=== PATIENT | female | born 2000 | race Caucasian/White ===

== ENCOUNTER 2025-04-08 10:26 | Outpatient (CLI) | payer BC, SELFPAY ==
--- OUTSIDE RECORDS SUMMARY | 2025-04-08 10:35 | XMS_ITS | Data Portability ---
Author Organization [place] - [facility] [place] & KEVIN Baldwin ADMIN Address [address] [place] [id number] Care Team Providers Care Mineral Surveying Technician Name Role Phone PHILLIP GUADALUPE Family Medicine PHILLIP GUADALUPE Primary Care Provider Assessment Encounter Date Assessment Date Assessment LastModified by Organization Details LastModified Time 06/09/2024 06/09/2024 23-year-old female with intermittent hard stools with straining and persistent lower abdominal pain. Imaging has showed constipation previously OTC laxatives and prescription osmotic laxatives have caused excessive diarrhea. Motegrity was not covered. She has failed multiple trials of medications. Colonoscopy showed no abnormal findings. She likely has anismus. -Start Colace 100 mg p.o. once daily for hard stools. -Will refer the patient for pelvic floor therapy, eval and treat -f/u 2 months Not available 06/09/2024 13:09:52 12/17/2024 12/17/2024 trial of low dose TCA at bed time restart bentyl for prn ppx use increase hydration check labs check echo short term f/u 43 minutes spent in the care of this patient today, the majority of which obtaining history and reviewing sypmtoms and explaining plan of care. [email or web address] Not available 12/17/2024 14:42:14 01/07/2025 01/07/2025 She will first try doubling dose of TCA and give me an update, if still no change at all we can plan for d/c discussed different supplements to consider such as gruns in place of her current probiotic continue hydration, add electrolytes discussed potential second opinion with GI, imaging family agreeable to CT pending cost discussed previously that there could be cooker tender component but does not seem cyclical or with associated sx at this time echo has reduced in intensity compared to last exam, per family request will hold on echo and continue to follow [email or web address] Not available 01/07/2025 11:41:12 02/02/2025 02/02/2025 we reviewed her history, the most recent labs, allergy findings both on her blood testing in her home testing. CT scan was reviewed in detail, as noted in the HPI call is pending to Dr. Canas in [facility] for review. We will plan for referral to secondary GI office for consultation. We discussed that her diagnosis of constipation was made off initial imaging in symptoms however now with daily bowel movements, she seems to have worsening symptoms and no improvement in how she feels. Numerous medications have been tried with no benefit. We did discuss possible histamine related symptoms and I have encouraged her to consider a 2 week course of Zyrtec with Pepcid as noted below and sent to the pharmacy. 38 minutes of care were spent on this case today. [email or web address] Not available 02/02/2025 13:01:56 Plan of Treatment Reminders Order Date Submit Date Provider Last Modified By Organization Details Last Modified Time Details Appointments None recorded. Lab magnesium, serum or plasma 2024 025 [facility]), [address] [place], [address], 5 14:37:25 TSH + free T4, serum 2024 025 [facility]), [address] [place], [address], 5 14:37:22 CMP, serum or plasma 2024 025 [facility] ([place]), [address] [place], [address], 5 14:37:24 CBC w/ auto diff 2024 025 [facility]), [address] [place], [address], 5 14:37:23 C reactive protein, QN, serum or plasma 2024 025 DR[facility] ([place]), [address] [place], [address], 5 14:37:26 erythrocyte sedimentati on rate by westergren method 2024 025 DRAGAN [facility] ([place]), [address] [place], [address], 5 14:37:25 iron + TIBC + ferritin, serum 2024 025 DRAGAN [facility] ([place]), [address] [place], [address], 5 14:37:21 Referral gastroenter ologist referral 2024 025 DRAGAN Mcneil MD, [address], [place], [address], 5 15:00:40 pelvic floor therapy referral 2023 024 [email or web address] Not available 13:10:02 Procedures None recorded. Surgeries None recorded. Imaging CT, abdomen + pelvis, w/ contrast - with po and iv contrast. Pt may be interested in diaz pay option due to high insurance cost 2024 025 [facility], [address], [place], [address], 5 09:16:40 US, echocardiog rea [address] (Centralized Scheduling), [address], [place], [address], 5 09:05:12 MRI, knee, w/o contrast [address] (Centralized Scheduling), [address] [place], [address], 5 08:54:08 Medication Orders cetirizine 10 mg capsule 2024 025 [facility]armacy #[id number], [address] [place], [address], 5 09:59:51 famotidine 20 mg tablet 2024 025 [facility]acy #[id number], [address] [place], [address], 5 09:59:51 amitriptyli ne 10 mg tablet [address]/Pharmacy #2332, [address] [place] [address], [address], 5 08:46:37 dicyclomine 20 mg tablet [address]/Pharmacy #2332, [address] [place], [address], 5 08:46:38 Colace [address] [facility] [address] [place] [address], [address], 5 10:00:17 Patient TargetsNo targets recorded. Patient InstructionsNo instructions recorded. Reason for Referral Pelvic Floor Therapy Referra l for Anismus Referring Physician: Isaac Quick, Gastroenterology, Encounter Date: 06/09/2024 Software Reliability Engineer Referral for Abdominal bloating Referring Physician: Phillip Gallo, Family Medicine, Encounter Date: 02/02/2025 Results Created Date Observation Date Name Description Value Unit Range Abnormal Flag Note LastModifiedBy Organization Detail LastModifiedTime 12/18/19 25 12/18/2024 FE+TI BC+FE R iron bind.cap.(TI BC) 355 ug/dL 250-45 0 normal Not Available [facility] ([facility]) [address] [place], [address], 12/18/2024 14:37:21 12/18/19 25 12/18/2024 FE+TI BC+FE R UIBC 319 ug/dL 131-42 5 normal Not Available [facility] ([facility]) [address] [place], [address], 12/18/2024 14:37:21 12/18/19 25 12/18/2024 FE+TI BC+FE R iron 36 ug/dL 27-159 normal Not Available [facility] ([facility]) [address] [place], [address], 12/18/2024 14:37:21 12/18/19 25 12/18/2024 FE+TI BC+FE R iron saturation 10 % 15-55 below low normal Not Available [facility] ([facility]) [address] [place], [address], 12/18/2024 14:37:21 12/18/19 25 12/18/2024 FE+TI BC+FE R ferritin 65 NG/mL 15-150 normal Not Available [facility] ([facility]) [address] [place], [address], 12/18/2024 14:37:21 12/18/1912/18/2024 TSH+F REE T4 TSH 1.600 uIU/m L 0.450- 4.500 normal Not Available [facility] ([facility]) [address] [place], [address], 12/18/2024 14:37:22 12/18/19 25 12/18/2024 TSH+F REE T4 T4,free(dire ct) 1.13 NG/dL 0.82-1 .77 normal Not Available [facility] ([facility]) [address] [place], [address], 12/18/2024 14:37:22 12/18/19 25 12/18/2024 CBC WITH DIFFE RENTI AL/PL ATELE T WBC 6.5 x10e3 /uL 3.4-10 .8 normal Not Available [facility] ([facility]) [address] [place], [address], 12/18/2024 14:37:23 12/18/19 25 12/18/2024 CBC WITH DIFFE RENTI AL/PL ATELE T RBC 4.41 x10e6 /uL 3.77-5 .28 normal Not Available [facility] ([facility]) [address] [place], [address], 12/18/2024 14:37:23 12/18/19 25 12/18/2024 CBC WITH DIFFE RENTI AL/PL ATELE T hemoglobin 13.5 g/dL 11.1-1 5.9 normal Not Available [facility] ([facility]) [address] [place], [address], 12/18/2024 14:37:23 12/18/19 25 12/18/2024 CBC WITH DIFFE RENTI AL/PL ATELE T hematocrit 41.2 % 34.0-4 6.6 normal Not Available [facility] ([facility]) [address] [place], [address], 12/18/2024 14:37:23 12/18/19 25 12/18/2024 CBC WITH DIFFE RENTI AL/PL ATELE T MCV 93 fL 79-97 normal Not Available [facility] ([facility]) [address] [place], [address], 12/18/2024 14:37:23 12/18/19 25 12/18/2024 CBC WITH DIFFE RENTI AL/PL ATELE T MCH 30.6 pg 26.6-3 3.0 normal Not Available [facility] ([facility]) [address] [facility] [place], [address], 12/18/2024 14:37:23 12/18/19 25 12/18/2024 CBC WITH DIFFE RENTI AL/PL ATELE T MCHC 32.8 g/dL 31.5-3 5.7 normal Not Available [facility] ([facility]) [address] [facility], [place], [address], 12/18/2024 14:37:23 12/18/19 25 12/18/2024 CBC WITH DIFFE RENTI AL/PL ATELE T RDW 12.0 % 11.7-1 5.4 Not Available [facility] ([facility]) [address] [facility], [place], [address], 12/18/2024 14:37:23 12/18/19 25 12/18/2024 CBC WITH DIFFE RENTI AL/PL ATELE T platelets 253 x10e3 /uL 150-45 0 normal Not Available [facility] ([facility]) [address] [facility], [place], [address], 12/18/2024 14:37:23 12/18/19 25 12/18/2024 CBC WITH DIFFE RENTI AL/PL ATELE T neutrophils 62 % not estab. normal Not Available [facility] ([facility]) [address] [facility], [place], [address], 12/18/2024 14:37:23 12/18/19 25 12/18/2024 CBC WITH DIFFE RENTI AL/PL ATELE T lymphs 31 % not estab. normal Not Available [facility] ([facility]) [address] [facility], [place], [address], 12/18/2024 14:37:23 12/18/19 25 12/18/2024 CBC WITH DIFFE RENTI AL/PL ATELE T monocytes 7 % not estab. normal Not Available [facility] ([facility]) [address] [facility], [place], [address], 12/18/2024 14:37:23 12/18/19 25 12/18/2024 CBC WITH DIFFE RENTI AL/PL ATELE T eos 0 % not estab. normal Not Available [facility] ([facility]) [address] [facility], [place], [address], 12/18/2024 14:37:23 12/18/19 25 12/18/2024 CBC WITH DIFFE RENTI AL/PL ATELE T basos 0 % not estab. normal Not Available [facility] ([facility]) [address] [place], [address], 12/18/2024 14:37:23 12/18/19 25 12/18/2024 CBC WITH DIFFE RENTI AL/PL ATELE T immature cells MARINE REPORTER Not Available [facility] ([facility]) [address] [place], [address], 12/18/2024 14:37:23 12/18/19 25 12/18/2024 CBC WITH DIFFE RENTI AL/PL ATELE T neutrophils (absolute) 4.0 x10e3 /uL 1.4-7. 0 normal Not Available [facility] ([facility]) [address] [place], [address], 12/18/2024 14:37:23 12/18/19 25 12/18/2024 CBC WITH DIFFE RENTI AL/PL ATELE T lymphs (absolute) 2.0 x10e3 /uL 0.7-3. 1 normal Not Available [facility] ([facility]) [address] [place], [address], 12/18/2024 14:37:23 12/18/19 25 12/18/2024 CBC WITH DIFFE RENTI AL/PL ATELE T monocytes(ab solute) 0.5 x10e3 /uL 0.1-0. 9 normal Not Available [facility] ([facility]) [address] [place], [address], 12/18/2024 14:37:23 12/18/19 25 12/18/2024 CBC WITH DIFFE RENTI AL/PL ATELE T eos (absolute) 0.0 x10e3 /uL 0.0-0. 4 normal Not Available [facility] ([facility]) [address] [facility], [place], [address], 12/18/2024 14:37:23 12/18/19 25 12/18/2024 CBC WITH DIFFE RENTI AL/PL ATELE T baso (absolute) 0.0 x10e3 /uL 0.0-0. 2 normal Not Available [facility] ([facility]) [address] [facility], [place], [address], 12/18/2024 14:37:23 12/18/19 25 12/18/2024 CBC WITH DIFFE RENTI AL/PL ATELE T immature granulocytes 0 % not estab. Not Available [facility] ([facility]) [address] [facility], [place], [address], 12/18/2024 14:37:23 12/18/19 25 12/18/2024 CBC WITH DIFFE RENTI AL/PL ATELE T immature grans (abs) 0.0 x10e3 /uL 0.0-0. 1 Not Available [facility] ([facility]) [address] [facility], [place], [address], 12/18/2024 14:37:23 12/18/19 25 12/18/2024 CBC WITH DIFFE RENTI AL/PL ATELE T NRBC MARINE REPORTER Not Available [facility] ([facility]) [address] [facility], [place], [address], 12/18/2024 14:37:23 12/18/19 25 12/18/2024 CBC WITH DIFFE RENTI AL/PL ATELE T hematology comments: MARINE REPORTER Not Available [facility] ([facility]) [address] [place], [address], 12/18/2024 14:37:23 12/18/19 25 12/18/2024 COMP. METAB OLIC PANEL (14) glucose 85 mg/dL 70-99 normal Not Available [facility] ([facility]) [address] [facility], [place], [address], 12/18/2024 14:37:24 12/18/19 25 12/18/2024 COMP. METAB OLIC PANEL (14) BUN 10 mg/dL 6-20 normal Not Available [facility] ([facility]) [address] [facility], [place], [address], 12/18/2024 14:37:24 12/18/19 25 12/18/2024 COMP. METAB OLIC PANEL (14) creatinine 0.95 mg/dL 0.57-1 .00 normal Not Available [facility] ([facility]) [address] [place], [address], 12/18/2024 14:37:24 12/18/19 25 12/18/2024 COMP. METAB OLIC PANEL (14) eGFR 86 mL/mi n/1.7 3 >59 normal Not Available [facility] ([facility]) [address] [place], [address], 12/18/2024 14:37:24 12/18/19 25 12/18/2024 COMP. METAB OLIC PANEL (14) BUN/creatini ne ratio 11 9-23 normal Not Available [facility] ([facility]) [address] [facility], [place], [address], 12/18/2024 14:37:24 12/18/19 25 12/18/2024 COMP. METAB OLIC PANEL (14) sodium 139 mmol/ L 134-14 4 normal Not Available [facility] ([facility]) [address] [place], [address], 12/18/2024 14:37:24 12/18/19 25 12/18/2024 COMP. METAB OLIC PANEL (14) potassium 4.5 mmol/ L 3.5-5. 2 normal Not Available [facility] ([facility]) [address] [place] [place], [address], 12/18/2024 14:37:24 12/18/19 25 12/18/2024 COMP. METAB OLIC PANEL (14) chloride 100 mmol/ L 96-106 normal Not Available [facility] ([facility]) [address] [place] [place], [address], 12/18/2024 14:37:24 12/18/19 25 12/18/2024 COMP. METAB OLIC PANEL (14) carbon dioxide, total 24 mmol/ L 20-29 normal Not Available [facility] ([facility]) [address] [place] [place], [address], 12/18/2024 14:37:24 12/18/19 25 12/18/2024 COMP. METAB OLIC PANEL (14) calcium 9.9 mg/dL 8.7-10 .2 normal Not Available [facility] ([facility]) [address] [place] [place], [address], 12/18/2024 14:37:24 12/18/19 25 12/18/2024 COMP. METAB OLIC PANEL (14) protein, total 7.5 g/dL 6.0-8. 5 normal Not Available [facility] ([facility]) [address] [place] [place], [address], 12/18/2024 14:37:24 12/18/19 25 12/18/2024 COMP. METAB OLIC PANEL (14) albumin 4.9 g/dL 4.0-5. 0 normal Not Available [facility] ([facility]) [address] [place] [place], [address], 12/18/2024 14:37:24 12/18/19 25 12/18/2024 COMP. METAB OLIC PANEL (14) globulin, total 2.6 g/dL 1.5-4. 5 Not Available [facility] ([facility]) [address] [place] [place], [address], 12/18/2024 14:37:24 12/18/19 25 12/18/2024 COMP. METAB OLIC PANEL (14) bilirubin, total <0.2 mg/dL 0.0-1. 2 Not Available [facility] ([facility]) [address] [place] [place], [address], 12/18/2024 14:37:24 12/18/19 25 12/18/2024 COMP. METAB OLIC PANEL (14) alkaline phosphatase 70 IU/L 44-121 normal Not Available [facility]) [address] [facility], [place], [address], 12/18/2024 14:37:24 12/18/19 25 12/18/2024 COMP. METAB OLIC PANEL (14) AST (SGOT) 15 IU/L 0-40 normal Not Available [facility] ([facility]) [address] [facility], [place], [address], 12/18/2024 14:37:24 12/18/19 25 12/18/2024 COMP. METAB OLIC PANEL (14) ALT (SGPT) 13 IU/L 0-32 normal Not Available [facility] ([facility]) [address] [facility], [place], [address], 12/18/2024 14:37:24 12/18/19 25 12/18/2024 SEDIM ENTAT ION RATE- WESTE RGREN sedimentatio n rate-westerg alicia 2 mm/HR 0-32 normal Not Available [facility] ([facility]) [address] [place] [place], [address], 12/18/2024 14:37:25 12/18/19 25 12/18/2024 MAGNE SIUM magnesium 2.2 mg/dL 1.6-2. 3 normal Not Available [facility] ([facility]) [address] [facility], [place], [address], 12/18/2024 14:37:25 12/18/1912/18/2024 C-KARLA CTIVE PROTE IN, QUANT C-reactive protein, quant <1 mg/L 0-10 Not Available [facility] ([facility]) [address] [facility], [place], [address], 12/18/2024 14:37:26 11/24/19 25 11/20/2024 XR, knee No observ ation record ed. [email or web address] Not Available 11/24 12:48:38 01/30/20 25 01/28/2025 CT, abdom en + pelvi s, w/ contr ast No observ ation record ed. [facility] [address] [facility] [address], [place], [address], 02/01/2025 16:29:17 02/03/20 25 01/28/2025 CT, abdom en + pelvi s, w/ contr ast No observ ation record ed. [facility] [address], [place], [address], 02/02/2025 14:32:48 Result Notes None recorded. Problems Name Problem SNOMED Code Status Onset Date Resolution Date Notes Provider Name and Address Organization Details Recorded Time Chronic idiopathic constipation 95852994 Active 2023 Isaac Quick PA-C [address] , [place], [address] , [place] - [facility] & [place] 4 15:10:47 Lower abdominal pain 44899896 Active 2023 Isaac Quick PA-C [address] , [place], [address] , [place] - [facility] & [place] 4 16:02:46 Hard stool 99420412 Active [address], [place], [address] , [place] - [facility] & [place] 4 13:06:38 Anismus 47473357 Active 2023 Isaac Quick PA-C [address], [place], [address] , [facility] - [facility] & [place] 4 13:08:57 Problem Notes None recorded. Procedures Surgical History Date Name Laterality Status Provider Name and Address Organization Details Recorded Time 4 Date of Last Colonoscopy completed Tala MILLER - [facility] & [place] 12/18/2024 14:28:19 4 Colonoscopy completed Tala MILLER - [facility] & [place] 12/18/2024 14:28:58 Imaging Results None recorded. Procedure Notes None recorded. Medical Equipment None Reported. Allergies No known drug allergies Medications Name Sig Start Date Stop Date Status Note LastModified by Organization Details LastModified Time tretinoin 0.1 % topical cream PLEASE SEE ATTACHED FOR DETAILED DIRECTION S active Not Available Not Available No t Available buspirone 5 mg tablet 06/06 completed Not Available Not Available Not Available Colace 100 mg capsule Take 1 capsule every day by oral route for 30 days. 11/24 completed Not Available Not Available Not Available cimetidine 400 mg tablet active Not Available Not Available Not Available famotidine 20 mg tablet Take 1 tablet twice a day by oral route for 30 days. 2024 active Not Available Not Available Not Avai lable dicyclomine 20 mg tablet TAKE 1 TABLET BY MOUTH FOUR TIMES A DAY active Not Available Not Available No t Available amitriptyli ne 10 mg tablet TAKE 1 TABLET BY MOUTH EVERY DAY active Not Available Not Available No t Available tazarotene 0.1 % topical cream active Not Available Not Available Not Available naproxen sodium 550 mg tablet TAKE 1 TABLET ORAL ROUTE EVERY 12 HOURS NEEDED active Not Available Not Available No t Available buspirone 7.5 mg tablet 06/06 completed Not Available Not Available Not Available clindamycin phosphate 1 % topical solution APPLY A THIN LAYER TO FACE IN THE MORNING OK TO APPLY TO CHEST AND BACK IF ACNE BEGINS active Not Available Not Available No t Available lubiproston e 24 mcg capsule TAKE 1 CAPSULE BY MOUTH TWICE A DAY FOR 30 DAYS 03/11 completed Not Available Not Available Not Available Senna with Docusate Sodium 8.6 mg-50 mg tablet 2 tablets every day by oral route. 06/06 completed Not Available Not Available Not Available dapsone 5 % topical gel APPLY A THIN LAYER TO FACE EVERY MORNING active Not Available Not Available No t Available cetirizine 10 mg capsule Take 1 capsule every day by oral route for 30 days. 2024 active Not Available Not Available Not Avai lable Purelax 17 gram/dose oral powder TAKE 17 GRAMS BY MOUTH EVERY DAY 06/06 completed Not Available Not Available Not Available sodium,pota ssium,mag sulfates 17.5 gram-3.13 gram-1.6 gram oral soln Take 6 ounces twice a day by oral route as directed for 1 day, for colonosco py prep. 06/06 completed Not Available Not Available Not Available Linzess 290 mcg capsule 06/06 completed Not Available Not Available Not Available clindamycin 1.2 %-benzoyl peroxide 2.5 % topical gel with pump APPLY THIN LAYER TO FACE EVERY MORNING 06/06 completed Not Available Not Available Not Available Linzess 72 mcg capsule 06/06 completed Not Available Not Available Not Available Motegrity 2 mg tablet Take 1 tablet every day by oral route for 30 days, for Constipat ion. 03/11 completed Not Available Not Available Not Available Ibsrela 50 mg tablet Take 1 tablet twice a day by oral route before meal(s) for 30 days, for 90. 03/11 completed Not Available Not Available Not Available Vitals Date Recorded Body height Body temperature Oxygen saturation Oxygen saturation in Arterial blood by Pulse oximetry Heart rate Systolic And Diastolic Provider Name and Address Organization Details Last Updated DateTime 5 175.26 cm 97.8 [degF] 100 % 100 % 68 /min 124/88 mm[Hg] Kacie [facility] [place] & [place] 5 10:04:57 Date Recorded Body height Body mass index (BMI) Body weight Body temperature Oxygen saturation Oxygen saturation in Arterial blood by Pulse oximetry Heart rate Systolic And Diastolic Provider Name and Address Organization Details Last Updated DateTime 5 175.26 cm 21.3 kg/m2 15806.3 g 97.7 [degF] 99 % 99 % 91 /min 116/72 mm[Hg] [facility] & [place] 5 14:02:41 Date Recorded Body height Body mass index (BMI) Body weight Body temperature Oxygen saturation Oxygen saturation in Arterial blood by Pulse oximetry Heart rate Systolic And Diastolic Provider Name and Address Organization Details Last Updated DateTime 5 175.26 cm 21.6 kg/m2 00344.4 9 g 97 [degF] 100 % 100 % 96 /min 126/88 mm[Hg] [facility] & [place] 5 08:55:32 Date Recorded Body height Body mass index (BMI) Body weight Body temperature Oxygen saturation Oxygen saturation in Arterial blood by Pulse oximetry Heart rate Systolic And Diastolic Provider Name and Address Organization Details Last Updated DateTime 5 175.26 cm 21.9 kg/m2 75401.6 7 g 96.8 [degF] 100 % 100 % 72 /min 112/70 mm[Hg] [facility] & [place] 5 09:21:16 Date Recorded Body height Body mass index (BMI) Body weight Body temperature Oxygen saturation Oxygen saturation in Arterial blood by Pulse oximetry Heart rate Heart rate Systolic And Diastolic Provider Name and Address Organization Details Last Updated DateTime 4 175.26 cm 21.4 kg/m2 67244.4 6 g 97.9 [degF] 99 % 99 % 64 /min 59 /min 132/81 mm[Hg] Anay Paniagua [facility] & [place] 4 08:28:29 Social History Question Answer Notes LastModified by Organizat ion Details LastModified Time Tobacco Smoking Status Never Smoker Sue disla [facility] & [place] 04/08/2023 10:45:33 Do You Have An Advance Directive? No [email or web address] Information not available 11/24/2024 If You Are , What Was Your Level Of Alcohol Consumption Prior To ? None Information not available 04/08/2023 Are You Blind Or Do You Have Difficulty Seeing? No [email or web address] Information not available 11/24/2024 What Is Your Level Of Caffeine Consumption? None [email or web address] Information not available 04/08/2023 What Was The Date Of Your Most Recent Tobacco Screening? 12/07/2023 [email or web address] Information not available 11/24/2024 Are You Passively Exposed To Smoke? No [email or web address] Information no t available 11/24/2024 How Much Tobacco Do You Smoke? No [email or web address] Information not available 11/24/2024 Has Tobacco Cessation Counseling Been Provided? No [email or web address] Information not available 04/08/2023 How Many Years Have You Smoked Tobacco? 0 [email or web address] Information not available 11/24/2024 Sex: Unknown Functional Status Question Answer Note LastModified by [employer] ion Details LastModified Time Do you use any illicit or recreational drugs? No [email or web address] Information not available 04/08/2023 Do you or have you ever used any other forms of tobacco or nicotine? No [email or web address] Information not available 04/08/2023 What is your level of alcohol consumption? None [email or web address] Information not available 04/08/2023 Do you or have you ever used smokeless tobacco? Never used smokeless tobacco [email or web address] Information not available 11/24/2024 What is your exercise level? Moderate [email or web address] Information not available 11/24/2024 Mental Status Question Answer Note LastModified by Organization D etails LastModified Time Do you feel stressed (tense, restless, nervous, or anxious, or unable to sleep at night)? [id number] Information not available 11/24/2024 Family History Relationship Description Onset Age of this Age Resolved Age Notes LastModified by Organization Details LastModified Time Father No current problems or disability [email or web address] Not available 0 05/21/2023 13:59:44 Mother No current problems or disability Not available 0 05/21/2023 13:59:44 Medical History Condition Response Anxiety Disorder Y Heart Problems Other Y Constipation Y GI Problems Y Acne Y Gynecological History Statement/Question Response Flow Moderate Date of Last Colonoscopy 05/07/2024 Sexually Active? N Menses Monthly Y Duration of Flow (days) 6 Current Control Method None Age at Menarche 14 Obstetrics History GPAL:G 0 P 0 0 0 0 Immunizations Vaccine Type Date Status Note Provider Nam e and Address Organization Details Recorded Time meningococcal B, recombinant 8 completed Not Available [facility] 11/01/2023 11:23:38 meningococcal B, recombinant 9 completed Not Available [facility] 11/01/2023 11:23:38 HPV9 8 completed Not Available [facility] 11/01/2023 11:23:38 HPV9 9 completed Not Available [facility] 11/01/2023 11:23:38 COVID-19, mRNA, LNP-S, PF, 30 mcg/0.3 mL dose 2 completed Not Available [facility] 11/01/2023 11:23:38 COVID-19, mRNA, LNP-S, PF, 30 mcg/0.3 mL dose 1 completed Not Available [facility] 11/01/2023 11:23:38 COVID-19, mRNA, LNP-S, PF, 30 mcg/0.3 mL dose 1 completed Not Available [facility] 11/01/2023 11:23:38 Hep A, ped/adol, 2 dose 8 completed Not Available [facility] 11/01/2023 11:23:38 Meningococcal MCV4O 8 completed Not Available [facility] 11/01/2023 11:23:38 Influenza, split virus, quadrivalent, PF 8 completed Not Available [facility] 11/01/2023 11:23:38 Influenza, split virus, quadrivalent, PF 9 completed Not Available [facility] 11/01/2023 11:23:38 Influenza, split virus, quadrivalent, PF 2 completed Not Available [facility] 11/01/2023 11:23:38 COVID-19, mRNA, LNP-S, PF, 50 mcg/0.5 mL 3 completed Not Available [facility] 11/01/2023 11:23:38 Influenza, split virus, quadrivalent, PF 3 completed Not Available [facility] 11/01/2023 11:23:38 Past Encounters Encounter ID Performer Location Encounter Start Date Encounter Closed Date Diagnosis/Indication Diagnosis SNOMED-CT Code Diagnosis ICD10 Code Diagnosis Note [id number] Phillip Gallo MD [address] [place] [address] 04/08/2023 10:28:51 04/08/2023 11:56:54 Irritable bowel syndrome 35350214 K58.9 testing as noted belowshort term f/u pending resultspos sible gi consultdis cussed fiber, miralax for constipati on but may need to consider linzess or similar [id number] Phillip Gallo MD [address] [place] [address] 05/21/2023 13:53:50 05/21/2023 14:35:54 Chronic constipation 491028125 K59.09 rec increase water intake to 64 oz a dayincreas e dose of miralax to 1.5 to 2 capful per dose with the increase in water intakeif no change, can start trulance via samples provided. We also discussed potential use of linzess as well. [id number] Phillip Gallo MD [address] [place] [address] 06/18/2023 10:12:19 06/18/2023 10:53:46 Chronic idiopathic constipation 05196715 K59.04 here is still retained stool on the study so I think a clean out type approach is a good idea. 1) mineral oil enema 2) glycerin suppositor y 3) mag citrate liquid and 4) senna such as senokot (orals first and about an hour later use the enema and suppositor y. If no change we can add rx lactulose. [id number] Phillip Gallo MD [address] [place] [address] 07/10/2023 14:14:17 07/10/2023 14:52:27 Chronic idiopathic constipation 62902436 K59.04 trial of high dose linzessrev iewed PRN regimeninc rease water intakecont inue miralax prnrefer to GIfood avoidance diet and trial of whole30 again discussedf /u here if needed if sx worsening before GI visit, consider [place] [id number] Phillip Gallo MD [address] [place] [address] 10/31/2023 10:59:51 10/31/2023 11:43:16 Irritable bowel syndrome 68985100 K58.9 pt to schedule with gitrial of buspar for anxietyadd bentylshor t term f/u Anxiety 08628622 F41.9 [id number] Phillip Gallo MD [address] [place] [address] 11/27/2023 10:04:36 11/27/2023 10:52:09 Chronic idiopathic constipation 23828941 K59.04 pending visit with GI , will try the low dose of linzess and see if she can tolerate thisdiscus sed that she will likely have loose stool when starting but persistenc e encouraged as it will likely improve with clean outhealthy habits discussed Anxiety 53719211 F41.9 increase dose of buspar,antlemo rt term f/udiscuss 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 [id number] Isaac Quick PA-C [facility] [address] [place] [address] 12/09/2023 14:22:56 12/09/2023 15:18:09 Chronic idiopathic constipation 46109276 K59.04 Lower abdominal pain 545 13536 R10.30 [id number] Isaac Quick PA-C [facility] [address] [place] [address] 12/30/2023 09:21:42 12/30/2023 10:07:59 Chronic idiopathic constipation 35644276 K59.04 Lower abdominal pain 545 10611 R10.30 [id number] Isaac Quick PA-C [facility] [address] [address] 01/29/2024 08:27:34 01/29/2024 08:57:14 Chronic idiopathic constipation 14330400 K59.04 Lower abdominal pain 545 56662 R10.30 [id number] ANGELICA WinnC [facility] [address] [address] 03/11/2024 09:14:53 03/11/2024 09:37:52 Chronic idiopathic constipation 60572118 K59.04 Lower abdominal pain 545 49580 R10.30 [id number] Isaac Quick PA-C [facility] [address] [address] 04/15/2024 08:24:09 04/15/2024 09:05:05 Chronic idiopathic constipation 86835455 K59.04 Lower abdominal pain 545 28654 R10.30 [id number] Isaac Quick PA-C [facility] [address] [address] 06/09/2024 08:15:23 06/09/2024 09:02:29 Lower abdominal pain 58928854 R10.30 Chronic id iopathic constipation 95050905 K59.04 Hard stool 22425775 R19. 5 Anismus 82034918 K59.4 [id number] Phillip Gallo MD [facility] [address] [place] [address] 11/24/2024 09:57:50 11/24/2024 10:40:30 Pain of left knee joint [id number] 15044 M25.562 concern for potential sprain of LCL but without mechanism of injury and concern for possible patellar laxity in the past with family history of hypermobil ity. Pt still with pain with weight bearing and persistent feeling of instabilit y of the knee.aarti nue nsaids, icediscuss ed hinged knee braceobtai n mript order provideder notes and imaging reviewed [id number] Phillip Gallo MD [facility] [address] [facility] RYAN Lizz [place]GELA [address] 12/17/2024 13:55:29 12/17/2024 14:52:19 Heart murmur 77013069 R01.1 Chronic ab dominal pain 583846072 R10.9 G89.29 Chronic constipation 236 803650 K59.09 [id number] Phillip Gallo MD [facility] [address] [facility] JACKELYN Zamudio [place] [address] 01/07/2025 08:46:53 01/07/2025 09:41:24 Chronic idiopathic constipation 00710008 K59.04 Abdominal bloating 20686 9008 R14.0 [id number] Phillip Gallo MD [address] [place] [address] 02/02/2025 09:13:36 02/02/2025 09:58:52 Abdominal bloating 662570339 R14.0 Health Concerns Section Related Observation LastModified by Organization Detai ls LastModified Time None Recorded Concern Status LastModified by Organization Details LastModified Time None Recorded Advance Directives Directive N: Payers Insurance Date Sequence Insurance Name Policy Number Policy Chavarria Covered Member ID Chavarria Member ID Guarantor Name 01/30/2025 1 [place] [employer] [id number] Jim Olguintaylor [id number] Jocelin Garcia Notes Date Note Type Note Provider Name and Address Organization Details Recorded Time 06/09/2024 text/html PREVIOUS: Jocelin Garcia is a 23-year-old female returns to the office today for one-month follow-up regarding chronic constipation. She was previously prescribed Ibsrela twice daily but this has not worked well for her. We ordered a CT of abdomen and pelvis for further evaluation of her constipation, however, her insurance did not cover this, so has not been performed.She has tried different laxatives previously such as Linzess, lactulose, lubiprostone, Ibsrela, MiraLax, fiber supplements, and magnesium. All medications caused her to have diarrhea. She still continues to have hard stools and straining with bowel movement. She does report lower abdominal pain.Denies blood in the stools. Denies nausea, acid reflux, or heartburn.She does watch her diet and tries to eat fairly healthy food with veggies. PREVIOUS (03/11/24): Ms. Garcia returns to the office today for follow-up regarding constipation, bloating, and lower abdominal pain. She has not had consistent results despite use of different OTC and prescription laxatives. Motegrity was most recently prescribed, but was not covered by her insurance. She is not currently taking any laxatives. PREVIOUS (04/15/24): Ms. Garcia returns to the office today for follow-up regarding chronic constipation, bloating, and lower abdominal pain. She has failed medical therapy with use of several different OTC and prescription laxatives. Dietary changes have not improved her symptoms. Celiac serologies and thyroid panel were previously normal. She had previously deferred colonoscopy, but would now like to proceed with endoscopic evaluation. CURRENT (06/09/24): Ms. Garcia returns to the office today for follow-up. She underwent Colonoscopy last month with no abnormal findings noted. She continues to complain of Isaac Quick PA-C [address], [place], [address], [place] - [facility] - [place] [facility] [place] 06/09/2024 13:10:16 11/24/2024 text/html ON 11/20 she was sitting on the floor with her legs crossed and was kneeling to stand and while on her way up, felt a sharp pain on the outside of her leg and felt that it was unable to support her weight. She did not have immediate swelling but did have some mild swelling in this same area the next day. She notes that the pain resolved with being seated but as soon as she stood or tried to bear weight it triggered the pain. She rates the inital pain as a 6-7, she has had improvement to about 2-3. At the ER she had an xray that was normal and given naproxen. She was given crutches but no instructions for how long to use. She notes that her knee cap would dislocate often as a child that cause soreness short term that resolved without intervention. This happened at least three times with the last event around age 11 or 12. Phillip Gallo MD [address], [place], [address], [facility] 11/24/2024 10:35:33 12/17/2024 text/html She is here for f/u on constipation.She does follow with GI and had a recently colonoscopy that was normal.She had been on linzess 290mcg and had diarrhea, and had similar issue with trulance. She also feels that she had the same issue with amitiza. She did note that even with complete prep for her colonoscopy she did not have any relief of symptoms following the clean out for the procedure.She note sthat she has bloating even if drinking water. She doesn't feel she was fully compliant with low FODMAP diet but did try to use a gluten free diet for several weeks with no change.SHe has not had blood in stool.She feels that she hasn't been able to participate in any activities or get a job due to her GI sx.She does not feel like she has had any worsening in her anxiety. Phillip Gallo MD [address], [place], [address], [facility] 12/17/2024 16:51:34 01/07/2025 text/html SHe is here for f/u on constipation.At last visit we discussed working dilligently on increase in hydration and starting probiotic as she has had no benefit with several rx options including linzess, trulance, amitiza. Ibsrela was prescribed by GI but not covered. She has ongoing issues with bloating as well and has been using bentyl with no clear benefit. Low dose TCA was added at last visit as well and she isn't sure if it is has helped. After starting probitoic she has had loose stool daily for a BM but usually one episode.We had discussed food sensitivity testing to look more at elimination diet as she had struggled with direction on this. She had testing completed and had numerous positives most notably to dairy and apples. She has not yet worked on eliminating these foods.Imaging had been ordered (ct) in the past but cost was very high with insurance and family was unable to proceed. At last visit when discussing dehydration she was noted to have a new heart murmur that had not been previously appreciated. She has no prior known hx per mother. Echo was ordered by cost was near 2700 and unable to be completed. Phillip Gallo MD [address] [facility], [place], [address], [place] [facility] [place] 01/07/2025 11:41:23 02/02/2025 text/html She is here for f/u on bloating and constipation. She notes that she has not had any improvement since last visit. She has eliminated all diary, corn, apple, walnuts, almonds that were the more prevalent findings on her allergy panel for the past three weeks. She did not feel like this elicited any change with the bloating or pressure. She is currently drinking about 32 oz of water most days up to 4 on a good day (maybe half the time).She notes that with all the things we have tried she feels like the bloating is worse than we began work up, She notes that now the bloating was initially a few hours after she ate but now the bloating is constant.She ran out of her probiotic about a week ago and hasn't continued, she also did not feel it was helping.She notes that over the past couple months she does have a daily BM with variable consistency but often soft unformed stool without blood, fat/mucous and brown in color. She has been trialed on buspirone both 5 and 7.5 mg dosing, did not tolerate higher increase, Colace, it Ibsrela was not covered by insurance. she has also had prescriptions for all 3 doses available of Linzess, lubiprostone, Motegrity, MiraLax, senna. some of these medications were started by our office, others by GI. Three prior x-rays starting in April of 2023, all indicating retained stool consistent with constipation. Her most recent CT scan that she had last week without mention of constipation and unfortunately done at an outside facility where images can not be acutely reviewed. Call his currently pending to Dr. Lane Canas to discuss this and get his opinion on stool burden. No acute findings were otherwise noted outside of incidental finding of pes excavatum. Phillip Gallo MD [address] [facility], [place], [address], [facility] - [place] 02/02/2025 13:02:08 OBGyn Episode No OBEpisode recorded.
[2025-04-13 07:15] LABS: Pancreatic Elastase, Fecal >800 (>200)
== END 2025-04-08 23:59 | disposition home or self-care (01) ==
LOC: LAB.DROPOF 10:27
PROVIDERS: PCP Family Medicine; Visit Provider Nurse Practitioner Family
DX: R14.0 Abdominal distension (gaseous) (principal)
CPT/HCPCS: 82656